=== PATIENT | female | born 1950 | race Caucasian/White ===

== ENCOUNTER 2022-03-19 18:03 | Inpatient (IN) | payer MEDICARE, MEDICAID ==
[~2022-03-19] VITALS: Ht 162.6 cm; Wt 63.5 kg
[2022-03-19] MEDS ORDERED: ONDANSETRON HCL 4MG/2ML INJ IV STA (18:53)
[2022-03-19] MEDS ORDERED: SODIUM CHLORIDE 0.9% 1,000 ML IV ONE (19:30)
[2022-03-19 21:54] LABS: BASOPHILS % 0.8 % (0.0-2.0); HEMATOCRIT. 35.2 % (36.0-48.0); HEMOGLOBIN. 12.1 g/dL (12.0-16.0); LYMPHOCYTES % 8.4 % (20.0-50.0); MEAN CORPUSCULAR HEMOGLOBIN 30.1 pg (28.0-32.0); MEAN CORPUSCULAR VOLUME 87.6 fL (81.0-99.0); MEAN PLATELET VOLUME 7.7 fl (7.4-10.4); MONOCYTES % 7.7 % (2.0-8.0); NEUTROPHILS % 83.1 % (40.0-76.0); PLATELET 359 x1000/uL (130-400); RED BLOOD CELL COUNT 4.02 mill/uL (4.2-5.4); RED CELL DISTRIBUTION WIDTH 13.8 % (11.6-14.6)
[2022-03-19 22:05] LABS: CHLORIDE 83 mEq/L (98-107)
[2022-03-19] MEDS ORDERED: ONDANSETRON HCL 4MG/2ML INJ IV NR (23:15)
[2022-03-20 00:13] LABS: CLARITY URINE CLEAR (CLEAR); COLOR URINE YELLOW (YELLOW); KETONES URINE 2+ (NEGATIVE); LEUKOCYTE ESTERASE URINE NEGATIVE (NEGATIVE); NITRITE URINE NEGATIVE (NEGATIVE); OCCULT BLOOD URINE NEGATIVE (NEGATIVE); PH URINE 7.5 (4.5-8.0); PROTEIN URINE 2+ (NEGATIVE); SPECIFIC GRAVITY URINE 1.013 (1.005-1.030); UROBILINOGEN URINE 0.2 E.U./dL (0.2-1.0)
[2022-03-20] MEDS ORDERED: AZITHROMYCIN 500MG/250ML 250 ML IV ONE (00:15)
[2022-03-20] MEDS ORDERED: CEFTRIAXONE 1 G PREMIX 50 ML IV ONE (00:15)
[2022-03-20] MEDS ORDERED: AZITHROMYCIN 500MG/250ML 250 ML IV NR (03:30)
[2022-03-20] MEDS ORDERED: CEFTRIAXONE 1 G PREMIX 50 ML IV NR (03:30)
[2022-03-20] MEDS ORDERED: IOHEXOL-300 100 ML BOTTLE ONE (04:24)
[2022-03-20 04:36] LABS: CHLORIDE 87 mEq/L (98-107)
[2022-03-20 04:52] LABS: PHOSPHORUS 4.1 mg/dL (2.5-4.9)
[2022-03-20] MEDS ORDERED: ACETAMINOPHEN 325MG TABLET PO PRN (09:15)
[2022-03-20] MEDS ORDERED: ONDANSETRON HCL 4MG/2ML INJ IV PRN (09:15)
[2022-03-20] MEDS ORDERED: IPRATROPIUM/ALBUTEROL 0.5-3(2.5)MG/3ML NEB HHN PRN (09:15)
[2022-03-20] MEDS ORDERED: DEXTROSE 50% WATER 50ML SYRINGE IV PRN (09:15)
[2022-03-20] MEDS: SODIUM CHLORIDE 0.9% 1,000 ML IV SCH ×2 (09:30→23:20)
[2022-03-20] MEDS ORDERED: MAGNESIUM 4 G PREMIX 100 ML IV SCH (10:00)
[2022-03-20] MEDS: KCL 20MEQ/100ML X 2 FOR TOTAL KCL 40MEQ/200ML IV SCH ×4 (10:15→18:00)
[2022-03-20] MEDS ORDERED: POTASSIUM CHLORIDE INJ 40 MEQ in DEXT 5% WATER 250 ML IV ONE (10:15)
[2022-03-20 12:00] VITALS: BP 140/83
[2022-03-20 12:15] VITALS: BP_SYST 140; BP_DIAS 83; BP_DIAS 88
[2022-03-20] MEDS: INSULIN LISPRO 100 UNITS/ML SUBCUT SCH ×3 (12:53→21:20)
[2022-03-20] MEDS: BLOOD SUGAR DIAGNOSTIC STRIP TEST SCH ×2 (12:53→21:21)
[2022-03-20 16:00] VITALS: BP 149/82
[2022-03-20 17:00] VITALS: BP 135/70
[2022-03-20] MEDS ORDERED: INSULIN LISPRO 100 UNITS/ML SUBCUT NR (19:00)
[2022-03-20 20:00] VITALS: BP 122/68
[2022-03-20] MEDS ORDERED: INSULIN GLARGINE 100 UNITS/ML SUBCUT SCH (22:00)
[2022-03-21] VITALS: BP 123/61
[2022-03-21 04:00] VITALS: BP 135/79
[2022-03-21] MEDS: CEFTRIAXONE 1,000 MG in DEXTROSE 5% WATER 50 ML IV SCH (05:48)
[2022-03-21] MEDS: BLOOD SUGAR DIAGNOSTIC STRIP TEST SCH ×4 (05:48→20:52)
[2022-03-21] MEDS ORDERED: CEFTRIAXONE 1,000 MG in DEXTROSE 5% WATER 50 ML IV SCH (06:00)
[2022-03-21 06:20] LABS: BASOPHILS % 0.7 % (0.0-2.0); EOSINOPHILS % 2.3 % (0.0-5.0); HEMATOCRIT. 36.3 % (36.0-48.0); HEMOGLOBIN. 12.5 g/dL (12.0-16.0); LYMPHOCYTES % 14.6 % (20.0-50.0); MEAN CORPUSCULAR HEMOGLOBIN 30.2 pg (28.0-32.0); MEAN CORPUSCULAR VOLUME 87.7 fL (81.0-99.0); MEAN PLATELET VOLUME 7.2 fl (7.4-10.4); MONOCYTES % 9.4 % (2.0-8.0); PLATELET 342 x1000/uL (130-400); RED BLOOD CELL COUNT 4.14 mill/uL (4.2-5.4); RED CELL DISTRIBUTION WIDTH 13.9 % (11.6-14.6)
[2022-03-21] MEDS: INSULIN LISPRO 100 UNITS/ML SUBCUT SCH ×4 (06:44→21:24)
[2022-03-21 07:58] LABS: CHLORIDE 93 mEq/L (98-107)
[2022-03-21 08:00] VITALS: BP 125/80
[2022-03-21 08:14] LABS: PHOSPHORUS 4.8 mg/dL (2.5-4.9)
[2022-03-21] MEDS: AZITHROMYCIN 500 MG TABLET PO SCH (09:24)
[2022-03-21] MEDS: DIATR MEGLU/DIATRIZOATE SOLN 30ML PO SCH ×3 (09:25→10:29)
[2022-03-21] MEDS ORDERED: DIATR MEGLU/DIATRIZOATE SOLN 120ML ONE (11:54)
[2022-03-21 12:00] VITALS: BP 121/80
[2022-03-21] MEDS: SODIUM CHLORIDE 0.9% 1,000 ML IV SCH (12:40)
[2022-03-21 16:00] VITALS: BP 115/79
[2022-03-21 20:00] VITALS: BP 154/90
[2022-03-22] VITALS: BP 167/88
[2022-03-22] MEDS: SODIUM CHLORIDE 0.9% 1,000 ML IV SCH ×3 (06:32→23:14)
[2022-03-22] MEDS: CEFTRIAXONE 1,000 MG in DEXTROSE 5% WATER 50 ML IV SCH (06:32)
[2022-03-22 06:34] LABS: EOSINOPHILS % 2.9 % (0.0-5.0); LYMPHOCYTES % 22.2 % (20.0-50.0); MEAN CORPUSCULAR HEMOGLOBIN 30.2 pg (28.0-32.0); MEAN CORPUSCULAR VOLUME 88.2 fL (81.0-99.0); MEAN PLATELET VOLUME 7.7 fl (7.4-10.4); MONOCYTES % 10.4 % (2.0-8.0); NEUTROPHILS % 63.5 % (40.0-76.0); PLATELET 341 x1000/uL (130-400); RED BLOOD CELL COUNT 3.96 mill/uL (4.2-5.4); RED CELL DISTRIBUTION WIDTH 13.9 % (11.6-14.6)
[2022-03-22] MEDS: OMEPRAZOLE 20MG CAPSULE EXTENDED RELEASE PO SCH (06:40)
[2022-03-22] MEDS: BLOOD SUGAR DIAGNOSTIC STRIP TEST SCH ×4 (06:40→21:40)
[2022-03-22] MEDS: CLONIDINE 0.2MG TABLET PO PRN ×2 (07:00→18:56)
[2022-03-22] MEDS: INSULIN LISPRO 100 UNITS/ML SUBCUT SCH ×4 (07:01→21:40)
[2022-03-22 08:00] VITALS: BP 114/64
[2022-03-22 08:56] LABS: CHLORIDE 98 mEq/L (98-107)
[2022-03-22] MEDS: AZITHROMYCIN 500 MG TABLET PO SCH (08:58)
[2022-03-22 09:23] LABS: PHOSPHORUS 5.1 mg/dL (2.5-4.9)
[2022-03-22 12:00] VITALS: BP 130/71
[2022-03-22 16:00] VITALS: BP 164/87
[2022-03-22] MEDS ORDERED: INSULIN GLARGINE 100 UNITS/ML SUBCUT NR (18:00)
[2022-03-22 20:00] VITALS: BP 141/79
[2022-03-23] VITALS: BP 129/77
[2022-03-23 04:00] VITALS: BP 131/74
[2022-03-23] MEDS: CEFTRIAXONE 1,000 MG in DEXTROSE 5% WATER 50 ML IV SCH (05:11)
[2022-03-23] MEDS: BLOOD SUGAR DIAGNOSTIC STRIP TEST SCH ×2 (05:40→12:14)
[2022-03-23] MEDS: INSULIN LISPRO 100 UNITS/ML SUBCUT SCH ×3 (05:40→12:59)
[2022-03-23] MEDS: OMEPRAZOLE 20MG CAPSULE EXTENDED RELEASE PO SCH (05:48)
[2022-03-23 08:00] VITALS: BP 155/79
[2022-03-23] MEDS: AZITHROMYCIN 500 MG TABLET PO SCH (09:07)
[2022-03-23] MEDS ORDERED: INSU100I28 SQ (10:19)
[2022-03-23 12:00] VITALS: BP 162/98
[2022-03-24] MEDS ORDERED: FAMOTIDINE 20MG TABLET PO SCH (09:00)
== END 2022-03-23 15:00 | disposition home or self-care (01) | DRG 177 ==
LOC: ER 18:03 → 7EST 03-20 01:48 → EDBEDREQTM 03-20 01:53 → EDBEDREQSVC 03-20 01:53 → EDBEDREQ 03-20 01:53 → EDBEDREQSVC 03-20 07:47
PROVIDERS: ADMIT Internal Medicine; ATTEND Internal Medicine
DX: U07.1 COVID-19 (principal); J12.82 Pneumonia due to coronavirus disease 2019; E87.1 Hypo-osmolality and hyponatremia; E87.6 Hypokalemia; E83.42 Hypomagnesemia; I10 Essential (primary) hypertension; E11.65 Type 2 diabetes mellitus with hyperglycemia; F03.90 Unspecified dementia, unspecified severity, without behavioral disturbance, psychotic disturbance, mood disturbance, and anxiety; E78.5 Hyperlipidemia, unspecified; N32.0 Bladder-neck obstruction; Z82.49 Family history of ischemic heart disease and other diseases of the circulatory system
CPT/HCPCS: 36415; 71045; 73521; 74176; 74177; 80048; 80053; 81003; 82533; 82962; 83036; 83735; 84100; 84443; 84484; 85025; 87426; 87804; 93005; 97162; 97166; 97530; 99285; C1893; C9803; J0456; J0696; J1815; J2405; J3475; J3480; J7030; J7060; Q9963; Q9967